=== PATIENT | male | born 1950 | race Caucasian/White ===

== ENCOUNTER 2025-06-24 16:27 | Inpatient (IN) ==
--- NOTE | 2025-06-24 17:03 | Emergency Department Note ---
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 06/24/25 20:58 ED DC CONDITION Conditon at Discharge Condition at Discharge: Fair Discharge Problem: DKA (diabetic ketoacidosis) Qualifiers: Diabetes mellitus type: type 2 Diabetes mellitus complication detail: without coma Qualified Code(s): E11.10 - Type 2 diabetes mellitus with ketoacidosis without coma
[2025-06-24] MEDS: SODIUM CHLORIDE 0.9% 500 ML IV STA (17:13)
--- NOTE | 2025-06-24 17:44 | CT Scan Report ---
Clinical History: Intermittent confusion. Technique: Axial computed tomography images were obtained of the brain from the vertex to the skull base without intravenous contrast. Findings: There is no sign of intracranial hemorrhage. There is normal mcnulty-white matter differentiation with no sign of acute or old infarction. No midline shift or other form of herniation is identified. There is no hydrocephalus. No obvious mass lesion is seen on this noncontrast examination. The visualized portions of the orbits and paranasal sinuses appear unremarkable. The mastoid air cells appear clear Impression: Unremarkable noncontrast CT of the brain Electronically signed by Dhaval Crain 06-24-2025 5:42 PM
--- NOTE | 2025-06-24 17:47 | CT Scan Report ---
Clinical history: Injury Technique: Axial computed tomography images were obtained of the cervical spine without intravenous contrast. Sagittal and coronal reconstructions were obtained Findings: No fracture is identified. No listhesis is seen. No focal osseous lesion is evident. 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 There is no spinal stenosis. The neural foramen are patent At C3-4, there is mild spinal stenosis due to a disc bulge. There is left greater than the right neural foramen narrowing that may affect the left C4 nerve root At C4-5, there is a disc bulge without clear spinal cord deformity. There is mild left neural foramen narrowing At C5-6, there is mild spinal stenosis due to a disc bulge and a left paracentral disc protrusion. There is left neural foramen narrowing that may affect the left C6 nerve root At C6-7, there is mild spinal stenosis due to a disc bulge and a left paracentral disc protrusion. There is left neural foramen narrowing that may affect the left C7 nerve root At C7-T1, there is a disc bulge without spinal stenosis. The neural foramen are patent The lung apices appear clear. The visualized soft tissues of the neck appear unremarkable. No foreign body is seen Impression: 1. No definite cervical spine fracture 2. Mild spinal stenosis at C3-4, C5-6 and C6-7 3. Left C3-4, C5-6, and C6-7 neural foramen narrowing, which may affect the exiting nerve roots ACT 112: Positive. There are findings on this exam that require communication between the performing entity and the patient following Patient Test Result Information Act ([place] ACT 112) guidelines. Electronically signed by Dhaval Crain 06-24-2025 5:46 PM
[2025-06-24 17:53] LABS: Hematocrit (blood only) 50.9 % (42.0-52.0); Hemoglobin 16.3 g/dl (14.0-18.0); Immature Granulocytes # (auto) 0.07 K/uL (0.01-0.20); Immature Granulocytes % (auto) 1.0 %; Mean Corpuscular Hemoglobin 30.0 pg (25.0-34.0); Mean Corpuscular Volume 93.6 fL (80.0-100.0); Platelet Count 208 K/uL (130-400); RDW Standard Deviation 56.2 fL (36.4-46.3); Red Blood Count 5.44 M/uL (4.70-6.10); White Blood Count 7.10 K/ul (4.8-10.8)
[2025-06-24 18:00] LABS: Thyroid Stimulating Hormone 6.309 uIu/ml (0.300-4.500)
[2025-06-24 18:02] LABS: Alkaline Phosphatase 84 U/L (34-104); Blood Urea Nitrogen 21 mg/dl (6-23); Calcium 8.9 mg/dl (8.6-10.3); Chloride 95 mmol/L (98-107); Creatinine Clr Calc Pharmacy 62.4 ml/min
[2025-06-24 18:04] LABS: Bilirubin,Total 0.8 mg/dl (0.2-1.0)
[2025-06-24 18:08] LABS: Albumin Globulin Ratio 1.0 (0.9-2); Globulin 4.2 gm/dl (2.5-4.0); Total Protein 8.2 gm/dl (6.0-8.3)
[2025-06-24 18:09] LABS: Carbon Dioxide 8 mmol/L (21-32); Glucose 444 mg/dl (70-99(Fasting))
[2025-06-24] MEDS ORDERED: NovoLIN-R INSULIN PER UNIT CHARGE IV STA (18:12)
[2025-06-24 18:19] LABS: INR 1.0 (0.9-1.1); Partial Thromboplastin Time 30 Seconds (21-31); Prothrombin Time 10.7 Seconds (9.0-12.0)
[2025-06-24] MEDS: SODIUM CHLORIDE 0.9% 1,000 ML IV ONE (18:31)
--- NOTE | 2025-06-24 18:50 | History & Physical Report ---
Date of Service June 24, 2025 Assessment & Plan Plan 75 year old male with PMH of type 2 diabetes who presented to the ED on 06/24/2025 with his son for increasing confusion and recurrent falls. DKA Admitting labs revealed glucose 444, bicarb 8, gap pending VBG pending Received 1.5L NSS in ED DKA protocol with insulin drip and q4hr labs Recurrent falls CT head and cervical spine negative Hypothyroidism TSH 6.9 DVT Prophylaxis: Code Status: FULL CODE - As per discussion at bedside with the patient. PCP: None Disposition: admit to PCU Patient seen in collaboration with Dr Otto. Please see addendum. I spent a total of 70 minutes coordinating, documenting and providing care for this patient excluding time spent in the performance of separately billed services or time spent by another provider/QHP. History of Present Illness Chief Complaint: falls Primary Care Provider: NO PCP 75 year old male with PMH of type 2 diabetes who presented to the ED on 06/24/2025 with his son for increasing confusion and recurrent falls. Past Med/Surg History Problem List Social History Smoking Status: Former smoker Feels Safe at Home: Yes Results & Data Results & Data Vital Signs (Past 12 Hours) Vital Signs Temp Pulse Pulse Resp BP BP Pulse Ox 06/24/25 17:13 91 H 06/24/25 17:00 91 H 18 97 06/24/25 17:00 176/97 H 06/24/25 17:00 176/97 H 06/24/25 16:54 92 H 20 98 06/24/25 16:33 36.7 C 93 H 20 159/90 H 98 06/24/25 16:29 97 06/24/25 16:29 87 16 198/110 H 97 O2 Del Method 06/24/25 17:13 06/24/25 17:00 06/24/25 17:00 06/24/25 17:00 06/24/25 16:54 06/24/25 16:33 Room Air 06/24/25 16:29 Room Air 06/24/25 16:29 Room Air
[2025-06-24 18:58] LABS: Base Excess VBG -18.2 mEq/L; HCO3 VBG 10 mmol/L; Oxygen Saturation VBG 71.0 %; PCO2 VBG 29 mmHg (38-50); PO2 VBG 43 mmHg; pH VBG 7.13 (7.36-7.41)
--- NOTE | 2025-06-24 19:16 | XRay Report ---
Clinical History: Injury Technique: 10 views of the chest and ribs were obtained Findings: There are no definite pulmonary infiltrates. The heart size is at the upper limit of normal. No pleural effusion or pneumothorax is seen. There is an apparent air cavity in the lateral right upper lobe. There are suspected small calcified pulmonary granulomas No fracture is noted. There is thoracic scoliosis and degenerative disc disease. Impression: 1. No definite rib fracture 2. Apparent air cavity in the right upper lobe that could be due to emphysema Electronically signed by Dhaval Crain 06-24-2025 7:16 PM
[2025-06-24 19:27] LABS: Potassium 4.4 mmol/L (3.5-5.1); Sodium 131.0 mmol/L (136-145)
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
[2025-06-24 19:32] LABS: Alanine Aminotransferase 13.0 U/L (7-52)
[2025-06-24] MEDS ORDERED: STAT IV/IM STA (20:05)
[2025-06-24] MEDS: LACTATED RINGER'S 2,000 ML IV ONE (20:13)
[2025-06-24 20:17] LABS: iSTAT Art Bld Gas Base Excess -22.0 meg/L (-9-1.8); iSTAT Art Bld Gas pCO2 Correct 15 mmHg (35-46); iSTAT Art Bld Gas pH Corrected 7.190 (7.35-7.45); iSTAT Arterial Blood Gas pO2 C 106
[2025-06-24] MEDS ORDERED: PHARMACY GLYCEMIC MGMT CONSULT PRN (20:38)
[2025-06-24] MEDS ORDERED: STAT IV Infusion **Titration per Protocol STA (20:38)
--- NOTE | 2025-06-24 21:17 | Critical Care Consultation ---
Date of Consultation June 24, 2025 Assessment & Plan (1) DKA (diabetic ketoacidosis): (2) Metabolic acidosis: (3) Hypothyroid: Plan Reason Critically Ill: 75 YOM found confused at home for unknown period. Found to be in DKA on arrival to EMD and hypovolemic. To ICU for continued supportive care and workup for other causes of DKA other than non-compliance or starvation or combination of the above. Neuro - metabolic encephalopathy, cervical stenosis with disc bulge and possible nerve root compression CAM ICU: [facility] - Metabolic encephalopathy- mild, appears to be improving per son's at bedside - No focal deficits, or vision changes- head CT without LVO or hemorrhage/mass interpreted - Cervical stenosis- multiple C3-C7 with possible nerve root impingement interpreted on imaging- once stabilized could consider MRI if symptomatic or radiculopathy - At this time patient doesn't report difficulty, however will re-evaluate once mentation is cleared - Tylenol for pain Cardiac - Hypovolemia, Hx: HTN, HLD - See DKA below for volume resuscitation- lactate not elevated and no evidence of further organ dysfunction at this time- however unsure of baseline [employer] VP - Hold antihypertensives until hemodynamics proven stable - no arrhythmia and no reports of chest discomfort - ECG on arrival to ICU for baseline as no records in our system and not obtained previously Respiratory - No acute needs, Hx: Previous smoker, possible COPD noted on CXR - no oxygen requirement, no clear opacity on CXR - follow clinically - consider PFTs outpatient GI - - hypertriglyceridemia- eval for poss. pancreatitis - Labs not performed x2 - discussed with lab on arrival to ICU- reports lipemia- concern would be for hypertriglyceridemia pancreatitis as well although abd. not tender - will send lipase and trig level and lipase - insulin as below with dextrose ensure anabolic state - goal BG 180-250 could tighten in am - Triglycerides 1881- Gemfibrozil 600mg now and then BID - lipase - 47 - reassuring - CT abd/pelvis with con eval for evidence of pancreatitis or GB involvement - - allow clears with water intake this evening to assist with resuscitation - Possible that in general non compliance with medications is cause underlying elevation RENAL/LYTES - Metabolic Acidosis- - Metabolic Acidosis - likely secondary to hypovolemia with concern for hypertrig pancreatitis with resulting DKA or general non-compliance resulting in DKA and elevation of trigs. - appears more clinically hypovolemic will provide 2L Crystalloid which is infusing currently and will increase maintenance rate- volume will also decrease his blood glucose levels- see below. - Replete K while on insulin infusion - Follow urine output- has not voided yet, may need to consider [place] - no acute needs - consider [place] as above - UA- not infectious appearing ENDO - Possible DKA, Hypothyroidism - with elevated glucose, low bicarb, and low PH- UA pending eval for ketones - glucose mildly elevated in 400s now 300s - Continue with crystalloid bolus and infusion - expect glucose to decrease with volume expansion - Insulin infusion initiated at 0.1units/kg/hr- without bolus- goal 180-250- may need slower rate at 0.05 units/kg/hr - will follow closely - BG q1 hr - BMP q4 h - PH q4h - Lactate q4h HEME - No acute need - follow HGB levels with resuscitation ID - rule out infectious causes of - blood cultures pending - UA pending LINES/IV ACCESS - PIV Continue use of these lines DVT PROPHYLAXIS - SCDS DISPO: ICU while requiring resuscitation, acute management of metabolic acidosis, and further evaluation of his lipemia. I have personally spent 55 minutes of critical care time in the direct management of this patient. This is a life/limb threatening event. This includes time spent evaluating patient, direct bedside care, chart review, placing orders, interpretation of diagnostic studies, discussion with consultants, patient, and family members, as well as other required patient management activities. This time is exclusive of all separately billable procedures, and teaching time and separate from and in addition to any other critical care service time. Thank you for allowing us to participate in the care of this patient. Please refer to my attending physician's documentation for any further recommendations. History of Present Illness Reason for Consultation: DKA Requesting Physician: Shaji Olson MD Attending Physician: Shaji Olson MD History of Present Illness 75 YOM that lives at home independently. There are no notes currently available in our system for review. Medical history from son's at bedside seems to include DM insulin dependant type II, Hypothyroidism, HLD, HTN, Obesity. Patient was found at home today by his son, after not being heard from for a week or so. Son reports that he found his dad in bed, confused, and complaining of thirst. He noted that his medications were all over the place at home, so he called the patient's DR, and appears that they have not been re-filled in ~ the last 6 months. Patient was brought to the ER, had CT scan of head and neck completed, and chest Xray following concern for possible fall. He had routine labs performed to include blood cultures, and lactate levels. He was noted with low HCO3 of 8 on his BMP and VBG was then obtained with PH 7.13, HCO3 6, Glucose 427. He was given 1.5 liters of crystalloid, 10 units of IV insulin and placed up for admission. Hospitalist was notified, and I was then consulted for admission to ICU for concenrs of DKA. Patient noted to be hypovolemic appearing on labs as well as assessment, requested another 2L of IV crystalloid to be given and will initiate insulin infusion on arrival to the ICU. Patient is encephalopathic, however when talking with his son's at bedside, they feel he has improved since arrival to the hosptial and receiving IV fluids. Patient will be brought to ICU to continue to evaluate for other causes of DKA to include infection, other than non compliance or starvation ketosis. CODE: FULL Allergies Allergy/AdvReac Type Severity Reaction Status Date / Time No Known Allergies Allergy Unverified 06/24/25 21:36 Home Medications Medication Instructions Recorded Confirmed Type fluoxetine 20 mg capsule 20 mg PO DAILY 06/24/25 06/24/25 History levothyroxine 112 mcg tablet 112 mcg PO QAM 06/24/25 06/24/25 History lisinopril 10 mg tablet 10 mg PO DAILY 06/24/25 06/24/25 History metformin 500 mg tablet,extended 1,000 mg PO BID 06/24/25 06/24/25 History release 24 hr rosuvastatin 20 mg tablet 20 mg PO DAILY 06/24/25 06/24/25 History zolpidem 10 mg tablet 10 mg PO HS PRN Insomnia 06/24/25 06/24/25 History Patient History Social History Smoking Status: Unknown if ever smoked Hx Alcohol Use: No Hx Substance Use: No Preferred Language: Bhutanese Communication Ability: Effective Political Organizer Required: No Beliefs That Will Affect Care: None Current Living Situation: Alone Other Information That Helps Us Care for You: No Feels Safe at Home: Yes Safety Concerns: Feels Safe At This Time Assistive Devices: Denture - Lower Review of Systems Review of Systems: REVIEW OF SYSTEMS: Constitutional: No fever, sweats or chills Eyes: No diplopia, no worsening or blurred vision ENT: normal hearing, no trouble swallowing Respiratory: (+) previous smoker, (+) cough, sputum, dyspnea at rest or on exertion Cardiovascular: No chest pain, tightness or palpitations Abdomen: (+) nausea, No pain, diarrhea or constipation Musculoskeletal: (+) back pain and leg pain, No joint pain, calf pain, swelling Neurologic: (+) new confusion, No weakness, numbness/tingling, or balance problems Skin: No rash or itch Physical Exam Physical Exam: PHYSICAL EXAM: General: awake, alert, mild encephalopathy Head: Normocephalic, atraumatic ENT: PERRLA, EOMI, no pharyngeal exudate, mucous membranes dry Neuro: AAO x 2, speech mostly appropriate difficulty articulating with dry tongue and oral cavity, strength intact bilaterally 5/5, sensation intact and equal all extremities and dermatomes, no pronator drift Chest: equal rise and fall of the chest, no accessory muscle use, fine crackles in bases with end expiratory wheeze Cardiac: Regular rate and rhythm, telemetry reviewed- NSR, skin warm dry, cap refill <3 seconds, peripheral pulses +2 no JVD, no murmur, no edema GI: NABS x 4 quadrants, soft, nontender to palpation, no rebound, guarding or tenderness : awaiting urine Skin: some bruises to side and legs, no pain noted with palpation to hips, knees, shoulders, chest or spine, Results & Data Results & Data Vital Signs (Past 12 Hours) Vital Signs Temp Pulse Pulse Resp BP BP Pulse Ox 06/24/25 17:13 91 H 06/24/25 17:00 91 H 18 97 06/24/25 17:00 176/97 H 06/24/25 17:00 176/97 H 06/24/25 16:54 92 H 20 98 06/24/25 16:33 36.7 C 93 H 20 159/90 H 98 06/24/25 16:29 97 06/24/25 16:29 87 16 198/110 H 97 O2 Del Method 06/24/25 17:13 06/24/25 17:00 06/24/25 17:00 06/24/25 17:00 06/24/25 16:54 06/24/25 16:33 Room Air 06/24/25 16:29 Room Air 06/24/25 16:29 Room Air Laboratory Results Abnormal lab results 06/24/25 06/24/25 06/24/25 Range/Units 16:58 17:04 17:33 RDW Std Deviation 56.2 H (36.4-46.3) fL RDW Coeff of Juan 16.4 H (11.5-14.5) % POC pH (7.35-7.45) POC pCO2 (35-46) mmHg POC pO2 (80-95) mmHg POC HCO3 (19-24) sandi/L POC Total CO2 (24-31) mmol/L POC Base Excess (-9-1.8) sandi/L ABG pH (Temp Correct) (7.35-7.45) ABG pCO2 (Temp Corrct (35-46) mmHg POC ABG O2 Sat (90-95) % VBG pH (7.36-7.41) VBG pCO2 (38-50) mmHg Sodium (136-145) mmol/L Chloride 95 L (98-107) mmol/L Carbon Dioxide 8 L* (21-32) mmol/L Glucose 444 H* (70-99(Fasting)) mg/dl POC Glucose 427 H* (70-99) mg/dl Globulin 4.2 H (2.5-4.0) gm/dl TSH 6.309 H (0.300-4.500) uIu/ml 06/24/25 06/24/25 06/24/25 Range/Units 18:27 18:48 20:03 RDW Std Deviation (36.4-46.3) fL RDW Coeff of Juan (11.5-14.5) % POC pH 7.19 L* (7.35-7.45) POC pCO2 15 L (35-46) mmHg POC pO2 106 H (80-95) mmHg POC HCO3 6 L (19-24) sandi/L POC Total CO2 6 L* (24-31) mmol/L POC Base Excess -22.0 L (-9-1.8) sandi/L ABG pH (Temp Correct) 7.190 L* (7.35-7.45) ABG pCO2 (Temp Corrct 15 L (35-46) mmHg POC ABG O2 Sat 97.0 H (90-95) % VBG pH 7.13 L (7.36-7.41) VBG pCO2 29 L (38-50) mmHg Sodium 131 L (136-145) mmol/L Chloride (98-107) mmol/L Carbon Dioxide (21-32) mmol/L Glucose (70-99(Fasting)) mg/dl POC Glucose 387 H* (70-99) mg/dl Globulin (2.5-4.0) gm/dl TSH (0.300-4.500) uIu/ml Diagnostic Findings Cervical Spine CT 06/24/25 16:54 Clinical history: Injury Technique: Axial computed tomography images were obtained of the cervical spine without intravenous contrast. Sagittal and coronal reconstructions were obtained Findings: No fracture is identified. No listhesis is seen. No focal osseous lesion is evident. 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 There is no spinal stenosis. The neural foramen are patent At C3-4, there is mild spinal stenosis due to a disc bulge. There is left greater than the right neural foramen narrowing that may affect the left C4 nerve root At C4-5, there is a disc bulge without clear spinal cord deformity. There is mild left neural foramen narrowing At C5-6, there is mild spinal stenosis due to a disc bulge and a left paracentral disc protrusion. There is left neural foramen narrowing that may affect the left C6 nerve root At C6-7, there is mild spinal stenosis due to a disc bulge and a left paracentral disc protrusion. There is left neural foramen narrowing that may affect the left C7 nerve root At C7-T1, there is a disc bulge without spinal stenosis. The neural foramen are patent The lung apices appear clear. The visualized soft tissues of the neck appear unremarkable. No foreign body is seen Impression: 1. No definite cervical spine fracture 2. Mild spinal stenosis at C3-4, C5-6 and C6-7 3. Left C3-4, C5-6, and C6-7 neural foramen narrowing, which may affect the exiting nerve roots ACT 112: Positive. There are findings on this exam that require communication between the performing entity and the patient following Patient Test Result Information Act ([place] ACT 112) guidelines. Electronically signed by Dhaval Crain 06-24-2025 5:[address] 06/24/25 16:54 Clinical History: Intermittent confusion. Technique: Axial computed tomography images were obtained of the brain from the vertex to the skull base without intravenous contrast. Findings: There is no sign of intracranial hemorrhage. There is normal mcnulty-white matter differentiation with no sign of acute or old infarction. No midline shift or other form of herniation is identified. There is no hydrocephalus. No obvious mass lesion is seen on this noncontrast examination. The visualized portions of the orbits and paranasal sinuses appear unremarkable. The mastoid air cells appear clear Impression: Unremarkable noncontrast CT of the brain Electronically signed by Dhaval Crain 06-24-2025 5:42 PM Ribs w/Chest X-Ray 06/24/25 16:56 Clinical History: Injury Technique: 10 views of the chest and ribs were obtained Findings: There are no definite pulmonary infiltrates. The heart size is at the upper limit of normal. No pleural effusion or pneumothorax is seen. There is an apparent air cavity in the lateral right upper lobe. There are suspected small calcified pulmonary granulomas No fracture is noted. There is thoracic scoliosis and degenerative disc disease. Impression: 1. No definite rib fracture 2. Apparent air cavity in the right upper lobe that could be due to emphysema Electronically signed by Dhaval Crain 06-24-2025 7:16 PM Medications Administered Lactated Ringer's (Lr) 2,000 mls @ 999 mls/hr IV .Q2H1M ONE Stop: 06/24/25 21:55 Last Admin: 06/24/25 20:13 Dose: 999 mls/hr Documented By: nicole Discontinued Medications Sodium Chloride (Nss) 500 mls @ 999 mls/hr IV .Q31M STA Stop: 06/24/25 17:24 Last Infusion: 06/24/25 19:00 Dose: Infused Documented By: mls Admin: 06/24/25 17:13 Dose: 999 mls/hr Documented By: [email or web address] Sodium Chloride (Nss) 1,000 mls @ 999 mls/hr IV .Q1H1M ONE Stop: 06/24/25 19:12 Last Infusion: 06/24/25 20:26 Dose: Infused Documented By: mls Admin: 06/24/25 18:31 Dose: 999 mls/hr Documented By: mls ECG Additional Comments: Pending on admission Coding Level of Care Code 68108 CRITICAL CARE 1ST 30-74M Diagnoses DKA (diabetic ketoacidosis) E11.10 Metabolic acidosis E87.20 Hypothyroid E03.9
[2025-06-24] MEDS: POTASSIUM CHLORIDE 20 MEQ/15 ML UDC PO STA (21:22)
[2025-06-24 21:27] LABS: Blood Urea Nitrogen 19 mg/dl (6-23); Calcium 8.2 mg/dl (8.6-10.3); Carbon Dioxide 10 mmol/L (21-32); Chloride 106 mmol/L (98-107); Creatinine Clr Calc Pharmacy 67.1 ml/min; Glucose 347 mg/dl (70-99(Fasting))
[2025-06-24] MEDS: INSULIN REGULAR 250 UNITS in SODIUM CHLORIDE 0.9% 247.5 ML IV SCH (21:27)
[2025-06-24 21:44] LABS: Lipase 47 U/L (11-82)
[2025-06-24 21:59] LABS: Triglycerides 1881 mg/dl (0-150)
[2025-06-24] MEDS: SODIUM BICARBONATE 8.4% 100 MEQ in DEXTROSE 5% 1,000 ML IV SCH (22:07)
[2025-06-24] MEDS: INSULIN ASPART PER UNIT CHARGE SC SCH (22:07)
[2025-06-24] MEDS: INSULIN HUMAN REGULAR PER UNIT 10 UNITS in SYRINGE 9.9 ML IV ONE (22:07)
[2025-06-24 22:26] LABS: Potassium 4.4 mmol/L (3.5-5.1); Sodium 132.0 mmol/L (136-145)
[2025-06-24] MEDS: OPTIRAY 320 100ml IV ONE (22:32)
[2025-06-24 22:35] LABS: Appearance Urine Clear (Clear); Bacteria Urine Automated None Seen (None Seen); Epithelial Cell Urine Auto 0-2 /hpf (0-2); Glucose Urine UA 3+ (Negative); RBC Urine Automated 0-2 /hpf (0-2); WBC Urine Automated 0-5 /hpf (0-5)
[2025-06-24] MEDS: LACTATED RINGER'S 1,000 ML IV SCH (22:41)
[2025-06-24] MEDS: PENDING 1/2NSS+20mEq KCL IVF SCH (22:41)
[2025-06-24] MEDS: PENDING D5 1/2NS+20mEq KCL IVF SCH (22:41)
[2025-06-24] MEDS: D5W AND LACTATED RINGERS 1,000 ML IV SCH (22:49)
[2025-06-24 22:59] LABS: Magnesium 1.8 mg/dl (1.7-2.4)
--- NOTE | 2025-06-25 00:26 | CT Scan Report ---
Exam(s): CT ABDOMEN + PELVIS With Contrast IV Amt: 93ml opti 320 EXAM: CT Abdomen and Pelvis With Intravenous Contrast CLINICAL HISTORY: Reason for exam: eval for pancreatitis or GB pathology. TECHNIQUE: Axial computed tomography images of the abdomen and pelvis with intravenous contrast. CTDI is 28.1 mGy and DLP is 1578 mGy-cm. Automated exposure control was utilized for the study. A dose lowering technique was utilized adhering to the principles of ALARA. CONTRAST: Patient received 93ml Optiray 320 of IV contrast COMPARISON: No relevant prior studies available. FINDINGS: Lung bases: 1 scattered bibasilar subsegmental atelectasis or fibrosis. Heart: Mild cardiomegaly and moderate coronary calcification. ABDOMEN: Liver: There is fatty infiltration of the liver and hepatomegaly. The liver measures 24 cm craniocaudad. No focal liver mass lesion is seen. Gallbladder and bile ducts: Unremarkable. No calcified stones. No ductal dilation. Pancreas: Unremarkable. No mass. No ductal dilation. Spleen: Unremarkable. No splenomegaly. Adrenals: Unremarkable. No mass. Kidneys and ureters: Unremarkable. No solid mass. No hydronephrosis. Stomach and bowel: Bowel loops are nondilated. There is diverticulosis of the sigmoid colon and left colon without evidence of acute diverticulitis. No acute inflammatory changes are seen involving the bowel. PELVIS: Appendix: No findings to suggest acute appendicitis. Bladder: Unremarkable. No mass. Reproductive: Unremarkable as visualized. ABDOMEN and PELVIS: Intraperitoneal space: Unremarkable. No free air. No significant fluid collection. Bones/joints: [id number] degenerative changes throughout the spine. No acute fracture or subluxation is seen. Soft tissues: Unremarkable. Vasculature: 3.3 cm calcified abdominal aortic aneurysm without evidence of rupture. Lymph nodes: Unremarkable. No enlarged lymph nodes. IMPRESSION: 1. There is fatty infiltration of the liver and hepatomegaly. The liver measures 24 cm craniocaudad. No focal liver mass lesion is seen. 2. The gallbladder and pancreas are unremarkable. No pancreatic or biliary duct dilation is seen. 3. Bowel loops are nondilated. There is diverticulosis of the sigmoid colon and left colon without evidence of acute diverticulitis. No acute inflammatory changes are seen involving the bowel. Electronically signed by: Jonnie Gotti MD 06/25/25 00:25 AM
[2025-06-25 01:25] LABS: Anion Gap 17.0 (3-11); Calcium 8.4 mg/dl (8.6-10.3); Carbon Dioxide 12.0 mmol/L (21-32); Chloride 108.0 mmol/L (98-107); Magnesium 1.6 mg/dl (1.7-2.4); Potassium 3.6 mmol/L (3.5-5.1); Sodium 137.0 mmol/L (136-145)
[2025-06-25 01:32] LABS: Blood Urea Nitrogen 15.0 mg/dl (6-23); Creatinine Clr Calc Pharmacy 84.1 ml/min; Glucose 202.0 mg/dl (70-99(Fasting))
[2025-06-25] MEDS ORDERED: POTASSIUM PHOS 3 MMOL/1 ML INFUSION IV STA ×2 (01:33→08:04)
[2025-06-25] MEDS: POTASSIUM PHOSPHATE 12 MMOL in SODIUM CHLORIDE 0.9% 250 ML IV ONE (02:11)
[2025-06-25] MEDS: POTASSIUM CHLORIDE CRTAB 20 MEQ TABCR PO STA (02:12)
[2025-06-25] MEDS: MAGNESIUM SULFATE / D5W 1 GM/100 ML BAG IV SCH (02:12)
[2025-06-25] MEDS: POTASSIUM CHLORIDE / WTR 10 MEQ/100 ML PLCT IV ONE (03:38)
[2025-06-25] MEDS: POTASSIUM CHLORIDE 20 MEQ/15 ML UDC PO STA (03:38)
[2025-06-25] MEDS: DEXTROSE 50% 50 ML SYRINGE IV ONE (03:54)
[2025-06-25] MEDS ORDERED: CARBOHYDRATES FOR HYPOGLYCEMIA PO PRN (04:15)
[2025-06-25] MEDS ORDERED: GLUCOSE 10 TAB/TUBE PO PRN (04:15)
[2025-06-25] MEDS ORDERED: GLUCAGON FOR INJ 1 MG VIAL SQ PRN (04:15)
[2025-06-25] MEDS ORDERED: GLUCOSE 40% GEL 15 GM TUBE PO PRN (04:15)
[2025-06-25] MEDS ORDERED: DEXTROSE 50% 50 ML SYRINGE IV PRN (04:15)
[2025-06-25 05:21] LABS: Anion Gap 14.0 (3-11); Calcium 8.8 mg/dl (8.6-10.3); Carbon Dioxide 14.0 mmol/L (21-32); Chloride 108.0 mmol/L (98-107); Magnesium 2.0 mg/dl (1.7-2.4); Potassium 3.8 mmol/L (3.5-5.1); Sodium 136.0 mmol/L (136-145)
[2025-06-25 05:27] LABS: Blood Urea Nitrogen 13.0 mg/dl (6-23); Creatinine Clr Calc Pharmacy 98.6 ml/min; Glucose 206.0 mg/dl (70-99(Fasting))
[2025-06-25 07:22] LABS: Hemoglobin A1C 13.5 % (4.5-5.6)
[2025-06-25] MEDS: LEVOTHYROXINE SODIUM 112 MCG TABLET PO SCH (08:27)
[2025-06-25] MEDS: POTASSIUM PHOSPHATE 30 MMOL in SODIUM CHLORIDE 0.9% 500 ML IV ONE (08:32)
[2025-06-25] MEDS: LANTUS PER UNIT CHARGE SC ONE (10:22)
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
[2025-06-25 13:10] LABS: Anion Gap 10.0 (3-11); Calcium 8.0 mg/dl (8.6-10.3); Carbon Dioxide 16.0 mmol/L (21-32); Chloride 106.0 mmol/L (98-107); Magnesium 1.7 mg/dl (1.7-2.4); Potassium 3.6 mmol/L (3.5-5.1); Sodium 132.0 mmol/L (136-145)
[2025-06-25 13:17] LABS: Blood Urea Nitrogen 9.0 mg/dl (6-23); Creatinine Clr Calc Pharmacy 111.9 ml/min; Glucose 260.0 mg/dl (70-99(Fasting))
--- NOTE | 2025-06-25 13:25 | Critical Care Progress Note ---
Date of Service June 25, 2025 Assessment & Plan (1) DKA (diabetic ketoacidosis): (2) Metabolic acidosis: (3) Hypothyroid: Plan Anion gap closed. Glucose is improving. Decrease D5 LR to 100 cc an hour. Appreciate pharmacy input for hyperglycemia management. Continue electrolyte replacements and frequent lab checks. Patient stable for downgrade to PCU and orders placed. Continue low-fat diet for hypertriglyceridemia. ICU services to sign off. Thank you for the consult. Admission and Anticipated Discharge Date Admission Date: June 24, 2025 Subjective Patient clinically improving with out any significant shortness of breath, chest pain or nausea at this time. Review of Systems Review of Systems: All systems reviewed & are unremarkable except as noted in HPI & below Physical Exam Physical Exam: PHYSICAL EXAM: General: awake, alert, mild encephalopathy Head: Normocephalic, atraumatic ENT: PERRLA, EOMI, no pharyngeal exudate, mucous membranes dry Neuro: AAO x 2, speech mostly appropriate difficulty articulating with dry tongue and oral cavity, strength intact bilaterally 5/5, sensation intact and equal all extremities and dermatomes, no pronator drift Chest: equal rise and fall of the chest, no accessory muscle use, fine crackles in bases with end expiratory wheeze Cardiac: Regular rate and rhythm, telemetry reviewed- NSR, skin warm dry, cap refill <3 seconds, peripheral pulses +2 no JVD, no murmur, no edema GI: NABS x 4 quadrants, soft, nontender to palpation, no rebound, guarding or tenderness : awaiting urine Skin: some bruises to side and legs, no pain noted with palpation to hips, knees, shoulders, chest or spine, Results & Data Results & Data Vital Signs (Past 12 Hours) Vital Signs Temp Pulse Resp BP Pulse Ox O2 Del Method 06/25/25 10:03 72 18 96 06/25/25 10:01 133/69 06/25/25 09:57 71 23 94 06/25/25 09:00 137/69 06/25/25 09:00 72 21 95 06/25/25 08:06 76 18 96 06/25/25 08:00 Room Air 06/25/25 07:06 70 26 H 95 06/25/25 07:00 138/68 06/25/25 06:54 71 25 H 98 06/25/25 06:18 69 27 H 96 06/25/25 06:00 137/69 06/25/25 05:48 73 25 H 95 06/25/25 05:00 75 25 H 145/75 H 92 06/25/25 04:00 77 25 H 128/73 96 06/25/25 03:59 36.5 C 06/25/25 03:09 77 28 H 95 06/25/25 03:01 128/74 06/25/25 02:51 77 22 98 06/25/25 02:03 78 18 97 06/25/25 02:00 141/78 H 06/25/25 02:00 141/78 H 06/25/25 01:47 36.7 C Coding Level of Care Code 33355 SUB INP/OBS CARE 11/06MIN Diagnoses DKA (diabetic ketoacidosis) E11.10 Diabetes mellitus complication detail: without coma Diabetes mellitus type: type 2 Metabolic acidosis E87.20 Hypothyroid E03.9 (1) DKA (diabetic ketoacidosis) Diabetes mellitus complication detail: without coma Diabetes mellitus type: type 2 Qualified Code(s): E11.10 - Type 2 diabetes mellitus with ketoacidosis without coma
--- NOTE | 2025-06-25 13:47 | Pharmacy Report ---
Pharmacy Glycemic Short Note 2 - Date of Service June 25, 2025 - Glycemic Short BSG Results (Last 24 hours): 06/24/25 06/24/25 06/24/25 16:58 17:04 18:27 Glucose 444 H* POC Glucose 427 H* 387 H* 06/24/25 06/24/25 06/24/25 20:31 21:10 22:20 Glucose 347 H* POC Glucose 308 H* 253 H 06/24/25 06/25/25 06/25/25 23:32 00:36 00:37 Glucose 202 H POC Glucose 223 H 209 H 06/25/25 06/25/25 06/25/25 01:29 02:27 03:25 Glucose POC Glucose 197 H 163 H 139 H 06/25/25 06/25/25 06/25/25 03:46 04:43 04:46 Glucose 206 H POC Glucose 190 H 191 H 06/25/25 06/25/25 06/25/25 05:44 06:45 07:14 Glucose POC Glucose 201 H 209 H 273 H 06/25/25 06/25/25 06/25/25 08:21 09:33 10:25 Glucose POC Glucose 264 H 252 H 231 H 06/25/25 06/25/25 06/25/25 11:17 12:34 12:44 Glucose 260 H POC Glucose 222 H 275 H OUTPATIENT ANTIDIABETIC REGIMEN: * metformin 1 gm bid, basaglar 35 units once daily ASSESSMENT: * 75 year old admitted with DKA. Notes report patient currently not taking his long acting insulin. Insulin drip started per DKA protocol. Labs improving this morning. Loss Prevention Associate agreeable to start some Lantus with insulin drip as AG is trending back to normal. Gap now closed later this morning. BSGs still >200, however diet started and also continues on dextrose in IVFs. * With next check, likely will give one time dose of novolog and start SSI. Will consider an additional 10 units of Lantus x 1. Will add on overnight checks to ensure stable. PLAN FOR INPATIENT GLYCEMIC CONTROL: * Hold outpatient oral diabetes medications * Basal insulin * Lantus 40 x 1 with insulin drip overlap this AM * Lantus 10 units x 1 this afternoon --> will dc insulin drip * Bolus insulin * NovoLog per scale ACHS or Q6hrs while NPO * Goal Range: Low 110 mg/dL - High 140 mg/dL * Correction Factor: 15 mg/dL/unit * Nutritional / Prandial insulin per carb ratio of 1 unit per 5 grams CHO consumed
[2025-06-25] MEDS: INSULIN ASPART PER UNIT CHARGE SC SCH ×2 (16:30→23:55)
--- NOTE | 2025-06-25 19:57 | Billing Data ---
Date of Service June 25, 2025 Coding Level of Care Code 36588 CRITICAL CARE 1ST 30-74M Time Spent (min) 46 Comment Total critical care time 46 minutes
[2025-06-25] MEDS: LANTUS PER UNIT CHARGE SC SCH (20:08)
[2025-06-26 09:01] LABS: Anion Gap 10.0 (3-11); Blood Urea Nitrogen 5.0 mg/dl (6-23); Calcium 7.8 mg/dl (8.6-10.3); Carbon Dioxide 19.0 mmol/L (21-32); Chloride 106.0 mmol/L (98-107); Creatinine Clr Calc Pharmacy 118.7 ml/min; Glucose 205.0 mg/dl (70-99(Fasting)); Potassium 3.2 mmol/L (3.5-5.1); Sodium 135.0 mmol/L (136-145)
[2025-06-26] MEDS: LANTUS PER UNIT CHARGE SC SCH (09:09)
[2025-06-26] MEDS ORDERED: POTASSIUM PHOS 3 MMOL/1 ML INFUSION IV STA (09:31)
[2025-06-26] MEDS: POTASSIUM PHOSPHATE 30 MMOL in SODIUM CHLORIDE 0.9% 500 ML IV ONE (10:38)
[2025-06-26 12:43] VITALS: TEMP 98.2
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
[2025-06-26 17:03] VITALS: BP 130/66; PULSE 76; RESP 16; O2SAT 95
--- NOTE | 2025-06-27 13:04 | Electrocardiogram Report ---
Test Reason : Blood Pressure : */* mmHG Vent. Rate : 85 BPM Atrial Rate : 85 BPM P-R Int : 168 ms QRS Dur : 124 ms QT Int : 394 ms P-R-T Axes : 59 -59 80 degrees QTcB Int : 468 ms Normal sinus rhythm Non-specific intra-ventricular conduction delay Abnormal ECG No previous ECGs available Confirmed by Barry Flowers ([id number]) on 06/27/2025 1:04:07 PM Referred By: REFERRED SELF Confirmed By: Barry Flowers
== END 2025-06-26 17:39 | disposition home or self-care (01) | DRG 637 ==
LOC: EDBD → ED 16:27 → 1E 20:01 → SUATTDRO 20:01 → 1E 20:58 → 2E 06-25 20:34